=== PATIENT | female | born 1980 | race Hispanic/Latino ===

== ENCOUNTER 2021-10-14 18:08 | Emergency (ER) | payer SELFPAY ==
[2021-10-14 19:29] LABS: #Basophils 0.1 10x3/uL (0.0-0.2); #Eosinphils 0.1 10x3/uL (0.0-0.5); #Monocytes 0.9 10x3/uL (0.0-1.1); #Neutrophils 8.7 10x3/uL (1.5-8.4); %Basophils 0.4 % (0.0-2.0); %Eosinophils 0.7 % (0.0-6.0); %Lymphocytes 21.6 % (18.0-47.0); %Monocytes 6.9 % (0.0-10.0); %Neutrophils 69.4 % (40.0-75.0); Hemoglobin 6.8 g/dL (12.0-15.5); Mean Corpuscular HGB CONC 32.5 g/dL (32.0-36.0); Mean Corpuscular Hemoglobin 32.2 pg (27.0-33.0); Mean Corpuscular Volume 99.1 fl (81.6-98.3); Mean Platelet Volume 8.9 fl (7.4-10.4); Platelet Count 176 10x3/uL (150-450); RBC Distribution Width 13.9 % (11.5-14.5); Red Blood Cell (RBC) Count 2.11 10x6/uL (3.90-5.03); White Blood Cell (WBC) Count 12.5 10x3/uL (3.5-10.5)
[2021-10-14 19:44] LABS: Bilirubin Neg (Negative); Blood, Urine Negative (Negative); Clarity Clear (Clear); Glucose, Urine (Dipstick) Normal (Negative); Ketone, Urine Negative (Negative); Leukocyte 25 (Negative); Nitrite Negative (Negative); Protein, Urine (Dipstick) Negative (Neg-Trace); Specific Gravity, Urine 1.015 (1.002-1.036); Urobilinogen Normal mg/dL (Less than 2)
[2021-10-14 19:56] LABS: Bacteria/HPF 2+ HPF (None Seen); RBC/HPF 0-3 HPF (0-3); Transitional Epithelial 0-3 HPF (None Seen); WBC/HPF 0-3 HPF (0-3)
[2021-10-14 22:06] LABS: #Eosinphils 0.1 10x3/uL (0.0-0.5); #Monocytes 0.9 10x3/uL (0.0-1.1); #Neutrophils 8.4 10x3/uL (1.5-8.4); %Basophils 0.1 % (0.0-2.0); %Lymphocytes 21.5 % (18.0-47.0); %Monocytes 7.2 % (0.0-10.0); %Neutrophils 69.7 % (40.0-75.0); Hemoglobin 12.2 g/dL (12.0-15.5); Mean Corpuscular HGB CONC 32.4 g/dL (32.0-36.0); Mean Corpuscular Hemoglobin 29.7 pg (27.0-33.0); Mean Corpuscular Volume 91.5 fl (81.6-98.3); Mean Platelet Volume 8.4 fl (7.4-10.4); Platelet Count 372 10x3/uL (150-450); RBC Distribution Width 13.7 % (11.5-14.5); Red Blood Cell (RBC) Count 4.11 10x6/uL (3.90-5.03)
== END 2021-10-14 22:35 | disposition home or self-care (01) ==
LOC: CSHERS 18:08
DX: O99.891 Other specified diseases and conditions complicating pregnancy (principal); R10.9 Unspecified abdominal pain; Z3A.14 14 weeks gestation of pregnancy; O23.91 Unspecified genitourinary tract infection in pregnancy, first trimester; O34.11 Maternal care for benign tumor of corpus uteri, first trimester
CPT/HCPCS: 36415; 81003; 81015; 84702; 85025; 86850; 86900; 86901; 87086